=== PATIENT | female | born 1990 | race Caucasian/White ===

== ENCOUNTER 2022-01-20 20:08 | Emergency (ER) | payer OTHER ==
[2022-01-20] MEDS ORDERED: Meclizine HCl 25 MG TAB ONE (20:37)
[2022-01-20 20:51] LABS: Actual Bicarbonate (HCO3v) 25 mEq/L (22-28); Base Excess 1.2 mEq/L (-2.0 to +3.0); Chloride (VBG) 103 mmol/L (98-106); Hemoglobin (Hb) 14.5 g/dL (11.7-15.5); Potassium (VBG) 3.54 mmol/L (3.70-5.30); Puncture Site Other Site; Sodium 137.9 mmol/L (133-146); pH (venous) 7.46 (7.32-7.43)
[2022-01-20] MEDS ORDERED: Oxymetazoline HCl 0.05% ( 15 ML ) ONE (21:02)
[2022-01-20 21:07] LABS: BHCG - Serum Negative (NEGATIVE); Pregs Control Bar Appear? YES (CONTROL BAR)
[2022-01-20 21:08] LABS: Pregs Control Background? CLEAR/WHITE (CLR/WHITE)
[2022-01-20 21:15] LABS: ALT (SGPT) 13 U/L (8-55); AST (SGOT) 16 U/L (5-34); Albumin 4.2 g/dL (3.5-5.0); Alkaline Phosphatase 73 U/L (40-110); Anion Gap 13 mmol/L (10-20); BUN (Urea Nitrogen) 15 mg/dL (7.0-18.7); Bilirubin, Total 0.2 mg/dL (0.2-1.2); Calc. Creatinine Clearance 0 mL/min (70-130); Calcium 9.4 mg/dL (7.8-10.44); Carbon Dioxide 24 mmol/L (22-29); Chloride 104 mmol/L (98-107); Estimated GFR 118; Glucose 133 mg/dL (70-105); Magnesium 1.7 mg/dL (1.6-2.6); Potassium 3.6 mmol/L (3.5-5.1); Protein, Total 7.2 g/dL (6.0-8.3); Sodium 137 mmol/L (136-145)
[2022-01-20 21:21] LABS: #Eosinphils 0.2 10x3/uL (0.0-0.5); #Monocytes 0.3 10x3/uL (0.0-1.1); #Neutrophils 3.8 10x3/uL (1.5-8.4); %Basophils 0.5 % (0.0-2.0); %Eosinophils 3.1 % (0.0-6.0); %Lymphocytes 30.3 % (18.0-47.0); %Neutrophils 60.8 % (40.0-75.0); Hemoglobin 13.8 g/dL (12.0-15.5); Mean Corpuscular HGB CONC 33.7 g/dL (32.0-36.0); Mean Corpuscular Hemoglobin 30.7 pg (27.0-33.0); Mean Corpuscular Volume 91.3 fl (81.6-98.3); Mean Platelet Volume 10.3 fl (7.4-10.4); Platelet Count 242 10x3/uL (150-450); RBC Distribution Width 11.7 % (11.5-14.5); Red Blood Cell (RBC) Count 4.49 10x6/uL (3.90-5.03); White Blood Cell (WBC) Count 6.2 10x3/uL (3.5-10.5)
[2022-01-20] MEDS ORDERED: Ondansetron PF 4 MG/2 ML Vial ONE (21:21)
[2022-01-20] MEDS ORDERED: Lorazepam 2 MG/ML VIAL ONE (22:37)
== END 2022-01-20 23:48 | disposition home or self-care (01) ==
LOC: CSHERS 20:08
DX: R42 Dizziness and giddiness (principal); E03.9 Hypothyroidism, unspecified; Z79.899 Other long term (current) drug therapy
CPT/HCPCS: 36416; 80053; 82805; 83735; 84703; 85025; 93005; 96374; 96375; J2060; J2405

== ENCOUNTER 2024-03-11 23:40 | Inpatient (IN) | payer OTHER ==
[2024-03-11 23:58] VITALS: BMI 26.1
[2024-03-12] MEDS ORDERED: Methylergonovine 0.2 MG/ML VIAL IM PRN (00:06)
[2024-03-12] MEDS ORDERED: HYDROcodone/Acetaminophen 5/325 mg Tablet PO PRN ×3 (00:06→07:41)
[2024-03-12] MEDS ORDERED: Carboprost 250 MCG/ML AMP IM PRN (00:06)
[2024-03-12] MEDS ORDERED: Lidocaine 1% (PF) 30 ML VIAL SC PRN (00:06)
[2024-03-12] MEDS ORDERED: Ibuprofen 800 MG TAB PO PRN (00:06)
[2024-03-12] MEDS ORDERED: Ondansetron PF 4 MG/2 ML Vial IVP PRN ×2 (00:06→01:29)
[2024-03-12] MEDS ORDERED: hydrALAZINE 20 MG/ML VIAL SLOW IVP PRN ×2 (00:06→07:41)
[2024-03-12] MEDS ORDERED: Misoprostol 200 MCG TAB PR PRN (00:06)
[2024-03-12] MEDS ORDERED: Promethazine HCl 25 MG/ML VIAL IM PRN ×2 (00:06→01:29)
[2024-03-12] MEDS ORDERED: Lactated Ringer's 1,000 ML IV SCH (00:15)
[2024-03-12] MEDS ORDERED: Oxytocin 30 units/NS 500 ML 500 ML IV SCH ×2 (00:15→07:41)
[2024-03-12 00:51] LABS: Hematocrit 37.9 % (34.9-44.5); Hemoglobin 12.7 g/dL (12.0-15.5); Mean Corpuscular HGB CONC 33.5 g/dL (32.0-36.0); Mean Corpuscular Hemoglobin 30.9 pg (27.0-33.0); Mean Corpuscular Volume 92.2 fL (81.6-98.3); Mean Platelet Volume 10.3 fL (7.4-10.4); Platelet Count 183 10x3/uL (150-450); RBC Distribution Width 15.4 % (11.5-14.5); Red Blood Cell (RBC) Count 4.11 10x6/uL (3.90-5.03); White Blood Cell (WBC) Count 8.6 10x3/uL (3.5-10.5)
[2024-03-12] MEDS: fentaNYL/Ropivacaine Epidural 100 ML ONE (01:12)
[2024-03-12 01:21] LABS: HBsAg Index 0.19 S/CO (0-0.99); Hep B Surf Ag - L&D Non-Reactive S/CO (NonReactive); Syphilis Antibody Nonreactive (Nonreactive); Syphilis Antibody Index 0.03 S/CO (<1.00 Non-Reactive)
[2024-03-12] MEDS ORDERED: Naloxone HCl 0.4 mg/ml Vial IVP PRN ×2 (01:29)
[2024-03-12] MEDS ORDERED: diphenhydrAMINE 50 MG/ML VIAL IVP PRN (01:29)
[2024-03-12] MEDS ORDERED: Lactated Ringer's 500 ML IV PRN (01:29)
[2024-03-12] MEDS ORDERED: Moisturizing Cream (Eucerin) 113 GM JAR TOP PRN (01:29)
[2024-03-12] MEDS ORDERED: ePHEDrine Sulfate 50 MG/10 ML VIAL SLOW IVP PRN (01:29)
[2024-03-12] MEDS ORDERED: Acetaminophen 325 MG TAB PO PRN (01:29)
[2024-03-12] MEDS ORDERED: Communication Order-Pharmacy FS SCH (01:30)
[2024-03-12] MEDS ORDERED: fentaNYL 2 mcg/Ropivacaine 0.2% Epidural 100 ML CADD EPIDURAL SCH (01:30)
[2024-03-12] MEDS ORDERED: Bupivacaine 0.25% HCL 30 ML VIAL ONE (07:00)
[2024-03-12] MEDS ORDERED: Bisacodyl 10 MG SUPP PR PRN (07:41)
[2024-03-12] MEDS ORDERED: Misoprostol 200 MCG TAB VAG PRN (07:41)
[2024-03-12] MEDS ORDERED: Milk Of Magnesia 30 ML UDCUP PO PRN (07:41)
[2024-03-12] MEDS: Tranexamic Acid 1,000 MG/10 ML VIAL ONE (08:15)
[2024-03-12] MEDS: Ferrous Sulfate 325 MG TAB PO SCH (08:16)
[2024-03-12] MEDS: Docusate 100 MG CAP PO SCH (08:54)
[2024-03-12] MEDS: Ibuprofen 800 MG TAB PO SCH (08:54)
[2024-03-12] MEDS: Prenatal Vitamin 1 TAB PO SCH (08:54)
[2024-03-12] MEDS: Boostrix 0.5 ML (Tdap) VIAL (>/=7 yrs of age) IM ONE (08:54)
[2024-03-12] MEDS: Misoprostol 200 MCG TAB PR SCH (17:00)
[2024-03-13 07:41] VITALS: BP 112/72; TEMP 98.1
[2024-03-13] MEDS: Benzocaine-Menthol 82.5 ML CAN TOP PRN (08:16)
== END 2024-03-13 11:25 | disposition home or self-care (01) | DRG 807 ==
LOC: CSHLD/OP 23:40 → CSHLD 03-12 00:20 → CSHPP 03-12 08:00
PROVIDERS: ADMIT Student in an Organized Health Care Education/Training Program; ATTEND Student in an Organized Health Care Education/Training Program
PROC: 10E0XZZ Delivery of Products of Conception, External Approach (ICD-10-PCS; principal; 2024-03-12)
DX: O48.0 Post-term pregnancy (principal); Z37.0 Single live birth; O99.284 Endocrine, nutritional and metabolic diseases complicating childbirth; E06.3 Autoimmune thyroiditis; Z85.850 Personal history of malignant neoplasm of thyroid; E89.0 Postprocedural hypothyroidism; Z3A.41 41 weeks gestation of pregnancy
CPT/HCPCS: 36415; 51702; 85027; 86780; 86850; 86900; 86901; 87340; 99285; J0665

== ENCOUNTER 2025-04-02 08:51 | Outpatient (CLI) | payer OTHER | END 2025-04-02 08:52 | disposition home or self-care (01) | LOC: CSHMAMMO 08:51 | PROVIDERS: ATTEND Family Medicine | DX: N63.24 Unspecified lump in the left breast, lower inner quadrant (principal) | CPT/HCPCS: 77066; G0279 ==